=== PATIENT | female | born 1975 | race Caucasian/White ===

== ENCOUNTER 2018-12-22 23:54 | Emergency (ER) | payer OTHER ==
[~2018-12-22] VITALS: Ht 154.9 cm; Wt 84.8 kg
[~2018-12-22 23:54] MED LIST: TOPROL XL50 MG
[2018-12-23] MEDS ORDERED: AMBIEN CR12.5 MG (00:06)
[2018-12-23] MEDS ORDERED: CLONOPIN (00:07)
[2018-12-23] MEDS ORDERED: NAPROXEN500 MG PO (06:00)
== END 2018-12-23 06:34 | disposition home or self-care (01) ==
LOC: ER 23:54 → CPU-OBS 12-23 00:26 → ER 12-23 06:34
DX: R07.89 Other chest pain (principal); M94.0 Chondrocostal junction syndrome [Tietze]
CPT/HCPCS: G0378; G0379; 93005